=== PATIENT | female | born 1970 | race African-American/Black ===

== ENCOUNTER 2018-05-14 14:58 | Inpatient (IN) | payer SELFPAY ==
[~2018-05-14] VITALS: Ht 172.7 cm; Wt 105.0 kg
[2018-05-14 15:33] LABS: Basophils # (auto) 0.1 uL; Basophils % (auto) 0.7 % (0.0-2.0); Eosinophils # (auto) 0 uL; Eosinophils % (auto) 0.1 % (0.0-7.0); Hematocrit 40.1 % (36.0-46.0); Lymphocytes # (auto) 1.3 uL; Lymphocytes % (auto) 13.4 % (10.0-50.0); Mean Corpuscular Hemoglobin 29.4 pg (28.0-32.0); Mean Corpuscular Hgb Conc. 32.3 g/dL (32.0-36.0); Mean Corpuscular Volume 90.8 fL (80.0-100.0); Monocytes # (auto) 0.9 uL; Monocytes % (auto) 9.8 % (0.0-12.0); Neutrophils # (auto) 7.2 uL; Nucleated Red Blood Cells % 0.1 %; Platelet Count (auto) 212 10^3/uL (140-450); Red Blood Cells 4.42 10^6/uL (4.0-5.20); Red Cell Distribution Width 14.5 % (11.8-14.3); White Blood Cell 9.5 10^3/uL (4.4-10.8)
[2018-05-14 15:52] LABS: Albumin 3.4 g/dL (3.4-5.0); Calcium 8.9 mg/dL (8.5-10.1)
[2018-05-14 15:55] LABS: Bilirubin, Total 1.5 mg/dL (0.2-1.0); Total Protein 8.9 g/dL (6.4-8.2)
[2018-05-14] MEDS ORDERED: PANTOPRAZOLE 40 MG/10 ML VIAL IV STA (15:57)
[2018-05-14] MEDS ORDERED: SODIUM CHLORIDE 0.9% 500 ML IVB ONE (15:57)
[2018-05-14] MEDS ORDERED: HYDROmorphone HCL 2 MG/ML VL IV ONE (16:00)
[2018-05-14] MEDS ORDERED: ONDANSETRON HCL 4 MG/2 ML VIAL IV ONE (16:00)
[2018-05-14 16:58] LABS: Magnesium 2.2 mg/dL (1.6-2.6)
[2018-05-14 21:16] LABS: Urine Bacteria NONE SEEN /hpf (None Seen); Urine Blood Negative /uL (Negative); Urine Mucus FEW (None Seen); Urine Specific Gravity 1.025 (1.001-1.035); Urine WBC 241 /hpf (0 - 5); Urine WBC Clumps PRESENT /hpf (None Seen)
[2018-05-15] MEDS ORDERED: diphenhdrAMINE HCL 50 MG/1 ML VL IV ONE
[2018-05-15] MEDS ORDERED: ONDANSETRON HCL 4 MG/2 ML VIAL IV PRN (00:45)
[2018-05-15] MEDS ORDERED: HYDROcodone-ACET 5/325MG TAB PO PRN (00:45)
[2018-05-15] MEDS ORDERED: TEMAZEPAM 15 MG CAP PO PRN (00:45)
[2018-05-15] MEDS ORDERED: MORPHINE SULFATE 4 MG/ML SYR/VIAL IV PRN (00:45)
[2018-05-15] MEDS ORDERED: POTASSIUM CHL 20 Meq TABLET PO ONE (01:00)
[2018-05-15] MEDS ORDERED: SODIUM CHLORIDE 0.9% 500 ML IV ONE (01:00)
[2018-05-15] MEDS ORDERED: TAMSULOSIN HYDROCHLORIDE 0.4 MG CAP PO ONE (01:00)
[2018-05-15] MEDS ORDERED: cefTRIAXone 1GM/50ML D5W 50 ML IV ONE (01:00)
[2018-05-15] MEDS ORDERED: diphenhdrAMINE HCL 25 MG CAP PO ONE (01:00)
[2018-05-15] MEDS: SODIUM CHLORIDE 0.9% 1,000 ML IV SCH ×2 (01:34→13:54)
[2018-05-15 02:30] VITALS: BP 150/81
[2018-05-15 05:00] VITALS: BP 116/76
[2018-05-15] MEDS: ACETAMINOPHEN 325 MG TAB PO PRN ×2 (05:15→18:30)
[2018-05-15] MEDS ORDERED: HYDR25TA4 PO (05:49)
[2018-05-15] MEDS ORDERED: LISI-646 PO (05:49)
[2018-05-15 07:57] LABS: Calcium 7.8 mg/dL (8.5-10.1); Potassium 3.9 mmol/L (3.5-5.1)
[2018-05-15 08:00] VITALS: BP 116/70
[2018-05-15 08:01] LABS: BUN/Creatinine Ratio 12.6
[2018-05-15] MEDS: FAMOTIDINE 20 MG TAB PO SCH ×2 (09:51→21:18)
[2018-05-15] MEDS: LISINOPRIL 5 MG TAB PO SCH (09:52)
[2018-05-15] MEDS: HCTZ 25 MG TAB PO SCH (09:52)
[2018-05-15 13:09] VITALS: BP 126/67
[2018-05-15] MEDS ORDERED: KETOROLAC TROMETH 30 MG/ML 1ML VIAL IV PRN (13:30)
[2018-05-15] MEDS ORDERED: MANNITOL FTV 25% 12.5 GM/50 ML 50 ML IV ONE (13:30)
[2018-05-15 16:49] VITALS: BP 129/79
[2018-05-15] MEDS: metroNIDAZOLE 500 MG TAB PO SCH ×2 (18:26→23:39)
[2018-05-15] MEDS: TAMSULOSIN HYDROCHLORIDE 0.4 MG CAP PO SCH (18:26)
[2018-05-15] MEDS: cefTRIAXone 1GM/50ML D5W 50 ML IV SCH (21:17)
[2018-05-15 22:00] VITALS: BP 116/81
[2018-05-16] MEDS: SODIUM CHLORIDE 0.9% 1,000 ML IV SCH ×2 (02:00→14:30)
[2018-05-16 05:00] VITALS: BP 127/78
[2018-05-16] MEDS: metroNIDAZOLE 500 MG TAB PO SCH ×4 (05:33→23:48)
[2018-05-16] MEDS: ACETAMINOPHEN 325 MG TAB PO PRN (05:41)
[2018-05-16 05:51] LABS: Basophils # (auto) 0 uL; Basophils % (auto) 0.9 % (0.0-2.0); Eosinophils # (auto) 0.2 uL; Eosinophils % (auto) 3.6 % (0.0-7.0); Hemoglobin 10.4 g/dL (12.2-16.2); Lymphocytes # (auto) 1.3 uL; Mean Corpuscular Hemoglobin 29.9 pg (28.0-32.0); Mean Corpuscular Hgb Conc. 33.3 g/dL (32.0-36.0); Mean Corpuscular Volume 89.7 fL (80.0-100.0); Monocytes # (auto) 0.9 uL; Monocytes % (auto) 17.3 % (0.0-12.0); Neutrophils # (auto) 2.9 uL; Neutrophils % (auto) 54.2 % (37.0-80.0); Nucleated Red Blood Cells % 0.1 %; Platelet Count (auto) 201 10^3/uL (140-450); Red Blood Cells 3.46 10^6/uL (4.0-5.20); Red Cell Distribution Width 14.2 % (11.8-14.3); White Blood Cell 5.4 10^3/uL (4.4-10.8)
[2018-05-16 06:15] LABS: Calcium 7.9 mg/dL (8.5-10.1); Potassium 3.2 mmol/L (3.5-5.1)
[2018-05-16 06:17] LABS: BUN/Creatinine Ratio 7.9
[2018-05-16 09:00] VITALS: BP 140/83
[2018-05-16] MEDS: FAMOTIDINE 20 MG TAB PO SCH ×2 (10:19→21:22)
[2018-05-16] MEDS: LISINOPRIL 5 MG TAB PO SCH (10:20)
[2018-05-16] MEDS: HCTZ 25 MG TAB PO SCH (10:20)
[2018-05-16] MEDS ORDERED: POTASSIUM CHL 20 Meq TABLET PO ONE ×2 (12:15→13:00)
[2018-05-16 13:00] VITALS: BP 134/81
[2018-05-16 17:07] VITALS: BP 133/90
[2018-05-16] MEDS: TAMSULOSIN HYDROCHLORIDE 0.4 MG CAP PO SCH (17:40)
[2018-05-16] MEDS: cefTRIAXone 1GM/50ML D5W 50 ML IV SCH (20:34)
[2018-05-16 21:27] VITALS: BP 137/79
[2018-05-17] MEDS: SODIUM CHLORIDE 0.9% 1,000 ML IV SCH ×2 (01:40→12:52)
[2018-05-17 04:35] VITALS: BP 142/88
[2018-05-17 05:42] LABS: Hemoglobin 9.9 g/dL (12.2-16.2)
[2018-05-17] MEDS: metroNIDAZOLE 500 MG TAB PO SCH ×2 (06:08→12:43)
[2018-05-17] MEDS: LISINOPRIL 5 MG TAB PO SCH (10:17)
[2018-05-17] MEDS: HCTZ 25 MG TAB PO SCH (10:20)
[2018-05-17] MEDS: FAMOTIDINE 20 MG TAB PO SCH (10:20)
[2018-05-17 13:00] VITALS: BP 161/84
[2018-05-17] MEDS ORDERED: LEVO500T21 PO (13:08)
[2018-05-17] MEDS ORDERED: TAM04C PO (13:08)
[2018-05-17] MEDS ORDERED: POTASSIUM CHL 20 Meq TABLET PO ONE (13:15)
[2018-05-17 17:00] VITALS: BP 154/81
== END 2018-05-17 17:35 | disposition home or self-care (01) | DRG 871 ==
LOC: ER 15:01 → OVERFLOW 05-15 00:46 → WEST WING 05-15 02:15
PROVIDERS: ADMIT Nurse Practitioner; ATTEND Internal Medicine
DX: A41.9 Sepsis, unspecified organism (principal); N17.0 Acute kidney failure with tubular necrosis; N13.6 Pyonephrosis; E87.6 Hypokalemia; E87.5 Hyperkalemia; E66.9 Obesity, unspecified; I10 Essential (primary) hypertension; B96.4 Proteus (mirabilis) (morganii) as the cause of diseases classified elsewhere; E86.0 Dehydration; Z90.49 Acquired absence of other specified parts of digestive tract; Z68.35 Body mass index [BMI] 35.0-35.9, adult
CPT/HCPCS: 36415; 71046; 74176; 80048; 80053; 81001; 82150; 83690; 83735; 84132; 85014; 85018; 85025; 87040; 87045; 87086; 87088; 87186; 87493; 87899; 94761; 96361; 96365; 96367; 96375; C9113; G0378; J0696; J1885; J2405

== ENCOUNTER 2019-03-16 19:01 | Emergency (ER) | payer SELFPAY ==
[~2019-03-16] VITALS: Ht 172.7 cm; Wt 104.3 kg
[~2019-03-16 19:01] MED LIST: HYDR25TA4 PO; LEVO500T21 PO; LISI-646 PO; TAM04C PO
[2019-03-16] MEDS ORDERED: SODIUM CHLORIDE 0.9% 1,000 ML IV ONE (21:00)
[2019-03-16] MEDS ORDERED: diphenhdrAMINE HCL 50 MG/1 ML VL IV ONE (21:00)
[2019-03-16] MEDS ORDERED: methylPREDNISolone SOD SUCC 125 MG/2 ML VL IV ONE (21:00)
[2019-03-16] MEDS ORDERED: cefTRIAXone 1GM/50ML D5W 50 ML IV ONE (22:45)
[2019-03-16 23:29] VITALS: BP 168/84
== END 2019-03-17 00:23 | disposition home or self-care (01) ==
LOC: ER 19:05
DX: T78.3XXA Angioneurotic edema, initial encounter (principal); J03.90 Acute tonsillitis, unspecified; I10 Essential (primary) hypertension; Z90.49 Acquired absence of other specified parts of digestive tract; Z98.51 Tubal ligation status; X58.XXXA Exposure to other specified factors, initial encounter
CPT/HCPCS: 72125; 96365; 96375; 99284; J0696; J1200; J2930

== ENCOUNTER 2021-12-12 18:26 | Inpatient (IN) | payer MEDICAID ==
[~2021-12-12] VITALS: Ht 172.7 cm; Wt 107.3 kg
[~2021-12-12 18:26] MED LIST changes: -LEVO500T21 PO; +LEVO500T31 PO; -LISI-646 PO; +LISI20TA28 PO
[2021-12-12 19:09] LABS: Basophils # (auto) 0.2 10 ^3/uL (0-0.2); Eosinophils # (auto) 0 10 ^3/uL (0-0.8); Eosinophils % (auto) 0.4 % (0.0-7.0); Hematocrit 38.8 % (36.0-46.0); Lymphocytes # (auto) 1.8 10 ^3/uL (0.4-5.4); Lymphocytes % (auto) 19.7 % (10.0-50.0); Mean Corpuscular Hemoglobin 30.3 pg (28.0-32.0); Mean Corpuscular Hgb Conc. 33.5 g/dL (32.0-36.0); Mean Corpuscular Volume 90.6 fL (80.0-100.0); Monocytes # (auto) 0.7 10 ^3/uL (0-1.3); Monocytes % (auto) 8.2 % (0.0-12.0); Neutrophils # (auto) 6.2 10 ^3/uL (1.6-8.6); Neutrophils % (auto) 69.7 % (37.0-80.0); Nucleated Red Blood Cells % 0.1 %; Red Blood Cells 4.28 10^6/uL (4.0-5.20); Red Cell Distribution Width 13.7 % (11.8-14.3); White Blood Cell 8.9 10^3/uL (4.4-10.8)
[2021-12-12 19:27] LABS: Albumin 3.9 g/dL (3.4-5.0); BUN/Creatinine Ratio 16.5; Calcium 9.3 mg/dL (8.5-10.1); Potassium 3.5 mmol/L (3.5-5.1)
[2021-12-12 19:30] LABS: Bilirubin, Total 1.3 mg/dL (0.2-1.0)
[2021-12-12] MEDS ORDERED: cloNIDine HCL 0.1 MG TAB PO ONE (20:15)
[2021-12-12] MEDS ORDERED: ENOXAPARIN SOD 100 MG/1 ML SYRINGE SC ONE (20:15)
[2021-12-12] MEDS ORDERED: ASPirin 81 mg TAB PO ONE ×2 (20:15)
[2021-12-12] MEDS ORDERED: SODIUM CHLORIDE 0.9% 500 ML IV ONE (22:00)
[2021-12-12] MEDS ORDERED: HYDROcodone-ACET 5/325MG TAB PO PRN (22:00)
[2021-12-12] MEDS ORDERED: TEMAZEPAM 15 MG CAP PO PRN (22:00)
[2021-12-12] MEDS ORDERED: NITROGLYCERIN 0.4 MG SL TAB SL PRN (22:00)
[2021-12-12] MEDS ORDERED: ATORVASTATIN 20 MG TAB PO SCH (22:00)
[2021-12-12] MEDS ORDERED: TAMSULOSIN HYDROCHLORIDE 0.4 MG CAP PO ONE (22:00)
[2021-12-12] MEDS ORDERED: MORPHINE SULFATE INJ 2 MG/ml SYRG IV PRN ×2 (22:00)
[2021-12-12] MEDS ORDERED: cloNIDine HCL 0.1 MG TAB PO PRN (22:00)
[2021-12-12] MEDS ORDERED: ONDANSETRON HCL 4 MG/2 ML VIAL IV PRN (22:00)
[2021-12-12 23:08] LABS: Urine Bacteria MANY /hpf (None Seen); Urine Blood 2+ /uL (Negative); Urine Mucus MANY (None Seen); Urine Specific Gravity 1.025 (1.001-1.035); Urine WBC 647 /hpf (0 - 5); Urine WBC Clumps PRESENT /hpf (None Seen)
[2021-12-13] VITALS (7 sets, daily range): BP systolic 98–141; BP diastolic 56–78
[2021-12-13] MEDS: ACETAMINOPHEN 325 MG TAB PO PRN (06:22)
[2021-12-13 06:46] LABS: Basophils # (auto) 0.1 10 ^3/uL (0-0.2); Basophils % (auto) 1.4 % (0.0-2.0); Eosinophils # (auto) 0 10 ^3/uL (0-0.8); Eosinophils % (auto) 0.8 % (0.0-7.0); Hematocrit 33.1 % (36.0-46.0); Lymphocytes # (auto) 1.5 10 ^3/uL (0.4-5.4); Lymphocytes % (auto) 26.1 % (10.0-50.0); Mean Corpuscular Hemoglobin 30.3 pg (28.0-32.0); Mean Corpuscular Hgb Conc. 33.4 g/dL (32.0-36.0); Mean Corpuscular Volume 90.8 fL (80.0-100.0); Monocytes # (auto) 0.9 10 ^3/uL (0-1.3); Monocytes % (auto) 15.6 % (0.0-12.0); Neutrophils # (auto) 3.3 10 ^3/uL (1.6-8.6); Neutrophils % (auto) 56.1 % (37.0-80.0); Nucleated Red Blood Cells % 0.2 %; Red Blood Cells 3.64 10^6/uL (4.0-5.20); Red Cell Distribution Width 13.4 % (11.8-14.3); White Blood Cell 5.9 10^3/uL (4.4-10.8)
[2021-12-13 07:04] LABS: Calcium 8.4 mg/dL (8.5-10.1); Potassium 3.3 mmol/L (3.5-5.1)
[2021-12-13 07:09] LABS: Albumin 2.9 g/dL (3.4-5.0); BUN/Creatinine Ratio 20.2; Bilirubin, Total 0.8 mg/dL (0.2-1.0); Total Protein 7.2 g/dL (6.4-8.2)
[2021-12-13] MEDS: PANTOPRAZOLE 40 MG TAB PO SCH (09:43)
[2021-12-13] MEDS: ENOXAPARIN SOD 40 MG/0.4 ML SYRINGE SC SCH (09:44)
[2021-12-13] MEDS ORDERED: ASPirin 81 mg TAB PO SCH (10:00)
[2021-12-13] MEDS ORDERED: HCTZ 25 MG TAB PO SCH (10:00)
[2021-12-13] MEDS ORDERED: LISINOPRIL 20 MG TAB PO SCH (10:00)
[2021-12-13] MEDS ORDERED: POTASSIUM CHL 20 Meq TABLET PO ONE (15:15)
[2021-12-13] MEDS ORDERED: cefTRIAXone 1GM/50ML D5W 50 ML IV ONE (15:15)
[2021-12-13] MEDS: SODIUM CHLORIDE 0.9% 1,000 ML IV SCH (18:03)
[2021-12-14] MEDS: SODIUM CHLORIDE 0.9% 1,000 ML IV SCH ×2 (04:35→21:30)
[2021-12-14 04:47] VITALS: BP 123/87
[2021-12-14 06:03] LABS: Potassium 3.3 mmol/L (3.5-5.1)
[2021-12-14 06:11] LABS: Magnesium 2.2 mg/dL (1.6-2.6)
[2021-12-14] MEDS: cefTRIAXone 1GM/50ML D5W 50 ML IV SCH (08:25)
[2021-12-14 09:00] VITALS: BP 152/82
[2021-12-14] MEDS: PANTOPRAZOLE 40 MG TAB PO SCH (09:44)
[2021-12-14] MEDS: ENOXAPARIN SOD 40 MG/0.4 ML SYRINGE SC SCH (09:44)
[2021-12-14] MEDS ORDERED: POTASSIUM EFFERVESENT TAB 25 MEQ PO ONE (09:45)
[2021-12-14] MEDS ORDERED: CIPR500T4 PO (12:41)
[2021-12-14 13:05] VITALS: BP 148/87
[2021-12-14] MEDS: ACETAMINOPHEN 325 MG TAB PO PRN (16:59)
[2021-12-14 17:00] VITALS: BP 152/73
[2021-12-14 22:00] VITALS: BP 143/69
[2021-12-15 05:00] VITALS: BP 137/75
[2021-12-15] MEDS: SODIUM CHLORIDE 0.9% 1,000 ML IV SCH (05:25)
[2021-12-15] MEDS: PANTOPRAZOLE 40 MG TAB PO SCH (07:54)
[2021-12-15] MEDS: cefTRIAXone 1GM/50ML D5W 50 ML IV SCH (07:54)
[2021-12-15] MEDS: ENOXAPARIN SOD 40 MG/0.4 ML SYRINGE SC SCH (07:55)
[2021-12-15] MEDS: ACETAMINOPHEN 325 MG TAB PO PRN (08:03)
[2021-12-15 09:00] VITALS: BP_SYST 136; BP_SYST 153; BP_DIAS 67; BP_DIAS 90
== END 2021-12-15 13:15 | disposition home or self-care (01) | DRG 463 ==
LOC: ER 18:26 → TELE 21:57 → TELE-CENTR 23:29
PROVIDERS: ADMIT Nurse Practitioner; ATTEND Internal Medicine
DX: N13.6 Pyonephrosis (principal); I21.A1 Myocardial infarction type 2; D64.9 Anemia, unspecified; E66.9 Obesity, unspecified; E87.6 Hypokalemia; K42.9 Umbilical hernia without obstruction or gangrene; I10 Essential (primary) hypertension; I25.2 Old myocardial infarction; Z87.442 Personal history of urinary calculi; Z90.49 Acquired absence of other specified parts of digestive tract; Z68.36 Body mass index [BMI] 36.0-36.9, adult
CPT/HCPCS: 36415; 71045; 74176; 80053; 80061; 81001; 83036; 83735; 83880; 84132; 84443; 84484; 85025; 87086; 93005; 93306; 96360; 96372; 99291; G0378; J0696; J2405

== ENCOUNTER 2022-01-28 23:22 | Emergency (ER) | payer MEDICAID ==
[~2022-01-28] VITALS: Ht 175.3 cm; Wt 95.5 kg
[~2022-01-28 23:22] MED LIST changes: +CIPR500T4 PO; -HYDR25TA4 PO; -LEVO500T31 PO; -LISI20TA28 PO; -TAM04C PO
[2022-01-29 00:04] LABS: Basophils # (auto) 0.1 10 ^3/uL (0-0.2); Basophils % (auto) 1.3 % (0.0-2.0); Eosinophils # (auto) 0.7 10 ^3/uL (0-0.8); Hematocrit 33.4 % (36.0-46.0); Hemoglobin 11.1 g/dL (12.2-16.2); Lymphocytes # (auto) 2.9 10 ^3/uL (0.4-5.4); Lymphocytes % (auto) 35.2 % (10.0-50.0); Mean Corpuscular Hemoglobin 30.2 pg (28.0-32.0); Mean Corpuscular Hgb Conc. 33.2 g/dL (32.0-36.0); Mean Corpuscular Volume 90.9 fL (80.0-100.0); Monocytes # (auto) 0.6 10 ^3/uL (0-1.3); Monocytes % (auto) 6.9 % (0.0-12.0); Neutrophils % (auto) 48.6 % (37.0-80.0); Red Blood Cells 3.67 10^6/uL (4.0-5.20); Red Cell Distribution Width 14.9 % (11.8-14.3); White Blood Cell 8.3 10^3/uL (4.4-10.8)
[2022-01-29 00:20] LABS: Albumin 3.9 g/dL (3.4-5.0); Calcium 8.8 mg/dL (8.5-10.1); Magnesium 2.3 mg/dL (1.6-2.6)
[2022-01-29 00:23] LABS: BUN/Creatinine Ratio 14.8
[2022-01-29 00:25] LABS: Bilirubin, Total 0.4 mg/dL (0.2-1.0)
[2022-01-29 00:44] LABS: Potassium 2.9 mmol/L (3.5-5.1)
[2022-01-29] MEDS ORDERED: POTASSIUM CHL 20 Meq TABLET PO ONE (01:15)
[2022-01-29 05:40] VITALS: BP 151/76
== END 2022-01-29 05:40 | disposition home or self-care (01) ==
LOC: ER 23:22
DX: R07.89 Other chest pain (principal); I10 Essential (primary) hypertension; Z90.49 Acquired absence of other specified parts of digestive tract; Z79.2 Long term (current) use of antibiotics
CPT/HCPCS: 36415; 71045; 80053; 83735; 83880; 84443; 84484; 85025; 93005

== ENCOUNTER → 2022-06-15 | Day surgery (SDC) | payer MEDICAID ==
[2022-06-12 10:42] LABS: Basophils # (auto) 0.1 10 ^3/uL (0-0.2); Basophils % (auto) 1.2 % (0.0-2.0); Eosinophils # (auto) 0.6 10 ^3/uL (0-0.8); Eosinophils % (auto) 10.8 % (0.0-7.0); Hematocrit 40.1 % (36.0-46.0); Hemoglobin 13.2 g/dL (12.2-16.2); Lymphocytes # (auto) 2.1 10 ^3/uL (0.4-5.4); Lymphocytes % (auto) 36.8 % (10.0-50.0); Mean Corpuscular Hemoglobin 30.4 pg (28.0-32.0); Mean Corpuscular Volume 92.2 fL (80.0-100.0); Monocytes # (auto) 0.4 10 ^3/uL (0-1.3); Monocytes % (auto) 7.1 % (0.0-12.0); Neutrophils # (auto) 2.5 10 ^3/uL (1.6-8.6); Neutrophils % (auto) 44.1 % (37.0-80.0); Nucleated Red Blood Cells % 0.3 %; Red Blood Cells 4.35 10^6/uL (4.0-5.20); Red Cell Distribution Width 14.3 % (11.8-14.3); White Blood Cell 5.6 10^3/uL (4.4-10.8)
[2022-06-12 11:03] LABS: Potassium 3.2 mmol/L (3.5-5.1)
[2022-06-12 11:07] LABS: Albumin 3.7 g/dL (3.4-5.0); BUN/Creatinine Ratio 12.7; Calcium 9.2 mg/dL (8.5-10.1)
[2022-06-12 11:10] LABS: Bilirubin, Total 0.4 mg/dL (0.2-1.0)
[2022-06-12 11:17] LABS: INR 0.99 (0.9-1.15); Partial Thromboplastin Time 31.4 sec (24.6-33.4)
[2022-06-12 14:36] LABS: Urine Blood Trace /uL (Negative)
[~2022-06-15] VITALS: Ht 172.7 cm; Wt 108.9 kg
[~2022-06-15] MED LIST changes: +AMLO-496 PO; -CIPR500T4 PO; +CIPROFLOXACIN 400MG/200ML 200 ML IV ONE; +GLYCOPYRROLATE 0.2 MG/ML 1ML VIAL ONE; +HYDR25TA5 PO; +HYDROmorphone HCL 2 MG/ML VL/or syr IV PRN; +IOHEXOL 300 MG/ML 100ML BOTTLE IJ ONE; +LIDOCAINE 2% (LOCAL ANESTH.) PF 5ml SDV ONE; +MIDAZOLAM HCL 2MG/2ML 2ml VIAL (1mg/ml) ONE; +NEOSTIGMINE 1 MG/ML INJ (10mg/10ML VIAL) ONE; +ONDANSETRON HCL 4 MG/2 ML VIAL IV PRN; +ONDANSETRON HCL 4 MG/2 ML VIAL ONE; +PROPOFOL 10 MG/ML 20 ML IV ONE; +ROCURONIUM 10MG/ML 10ML VIAL IV ONE; +fentaNYL CITRATE 100 MCG/2 ML VL ONE
[2022-06-15 10:11] VITALS: BP 128/74
== END | disposition home or self-care (01) ==
LOC: SUR 06:26
PROVIDERS: ATTEND Urology
DX: N20.1 Calculus of ureter (principal); I10 Essential (primary) hypertension; Z79.899 Other long term (current) drug therapy
CPT/HCPCS: 36415; 52356; 74018; 76000; 80053; 81001; 85025; 85610; 85730; 88300; C2617; J0744; J2001; J2250; J2405; J2704; J3010; Q9967; U0003

== ENCOUNTER 2022-10-26 08:47 | Inpatient (IN) | payer MEDICAID ==
[~2022-10-26] VITALS: Ht 172.7 cm; Wt 104.0 kg
[~2022-10-26 08:47] MED LIST changes: -CIPROFLOXACIN 400MG/200ML 200 ML IV ONE; -GLYCOPYRROLATE 0.2 MG/ML 1ML VIAL ONE; -HYDROmorphone HCL 2 MG/ML VL/or syr IV PRN; -IOHEXOL 300 MG/ML 100ML BOTTLE IJ ONE; -LIDOCAINE 2% (LOCAL ANESTH.) PF 5ml SDV ONE; -MIDAZOLAM HCL 2MG/2ML 2ml VIAL (1mg/ml) ONE; -NEOSTIGMINE 1 MG/ML INJ (10mg/10ML VIAL) ONE; -ONDANSETRON HCL 4 MG/2 ML VIAL IV PRN; -ONDANSETRON HCL 4 MG/2 ML VIAL ONE; -PROPOFOL 10 MG/ML 20 ML IV ONE; -ROCURONIUM 10MG/ML 10ML VIAL IV ONE; -fentaNYL CITRATE 100 MCG/2 ML VL ONE
[2022-10-26 09:39] LABS: Basophils # (auto) 0.1 10 ^3/uL (0-0.2); Basophils % (auto) 0.9 % (0.0-2.0); Eosinophils # (auto) 0.4 10 ^3/uL (0-0.8); Eosinophils % (auto) 5.8 % (0.0-7.0); Hematocrit 33.8 % (36.0-46.0); Hemoglobin 11.1 g/dL (12.2-16.2); Lymphocytes # (auto) 2.8 10 ^3/uL (0.4-5.4); Lymphocytes % (auto) 40.7 % (10.0-50.0); Mean Corpuscular Hemoglobin 30.2 pg (28.0-32.0); Mean Corpuscular Volume 91.5 fL (80.0-100.0); Monocytes # (auto) 0.5 10 ^3/uL (0-1.3); Neutrophils # (auto) 3.2 10 ^3/uL (1.6-8.6); Neutrophils % (auto) 45.6 % (37.0-80.0); Nucleated Red Blood Cells % 0.2 %; Red Blood Cells 3.69 10^6/uL (4.0-5.20); White Blood Cell 6.9 10^3/uL (4.4-10.8)
[2022-10-26 10:25] LABS: Calcium 9.6 mg/dL (8.5-10.1); Potassium 3.3 mmol/L (3.5-5.1)
[2022-10-26 10:31] LABS: Albumin 3.6 g/dL (3.4-5.0); BUN/Creatinine Ratio 15.5 (10.0-20.0); Bilirubin, Total 0.2 mg/dL (0.2-1.0); Total Protein 7.6 g/dL (6.4-8.2)
[2022-10-26 10:41] LABS: Partial Thromboplastin Time 30.6 sec (24.6-33.4)
[2022-10-26 14:30] LABS: Urine Bacteria NONE SEEN /hpf (None Seen); Urine Blood Negative /uL (Negative); Urine Mucus FEW (None Seen); Urine Specific Gravity 1.022 (1.001-1.035); Urine WBC 1 /hpf (0 - 5)
[2022-10-26] MEDS ORDERED: ONDANSETRON HCL 4 MG/2 ML VIAL IV PRN (14:45)
[2022-10-26] MEDS ORDERED: DOCUSATE SOD 100 MG CAP PO PRN (14:45)
[2022-10-26] MEDS ORDERED: POTASSIUM EFFERVESENT TAB 25 MEQ PO ONE (14:45)
[2022-10-26] MEDS ORDERED: MORPHINE SULFATE INJ 2 MG/ml SYRG IV PRN (14:45)
[2022-10-26] MEDS: SODIUM CHLORIDE 0.9% 1,000 ML IV SCH ×2 (18:04→23:05)
[2022-10-27 06:10] LABS: Basophils # (auto) 0.3 10 ^3/uL (0-0.2); Basophils % (auto) 4.5 % (0.0-2.0); Eosinophils # (auto) 0.5 10 ^3/uL (0-0.8); Eosinophils % (auto) 7.3 % (0.0-7.0); Hematocrit 32.7 % (36.0-46.0); Lymphocytes # (auto) 2.7 10 ^3/uL (0.4-5.4); Lymphocytes % (auto) 40.6 % (10.0-50.0); Mean Corpuscular Hemoglobin 30.6 pg (28.0-32.0); Mean Corpuscular Hgb Conc. 33.5 g/dL (32.0-36.0); Mean Corpuscular Volume 91.2 fL (80.0-100.0); Monocytes # (auto) 0.5 10 ^3/uL (0-1.3); Monocytes % (auto) 7.8 % (0.0-12.0); Neutrophils # (auto) 2.6 10 ^3/uL (1.6-8.6); Neutrophils % (auto) 39.8 % (37.0-80.0); Nucleated Red Blood Cells % 0.1 %; Red Blood Cells 3.58 10^6/uL (4.0-5.20); Red Cell Distribution Width 14.3 % (11.8-14.3); White Blood Cell 6.5 10^3/uL (4.4-10.8)
[2022-10-27 06:43] LABS: Potassium 3.4 mmol/L (3.5-5.1)
[2022-10-27] MEDS ORDERED: LIDOCAINE 1% HCL (LOCAL ANESTH.) INJ 20ML MDV ONE (06:48)
[2022-10-27] MEDS ORDERED: BUPIVACAINE 0.25% INJ 50ML VIAL ONE (06:49)
[2022-10-27 06:58] LABS: Albumin 3.1 g/dL (3.4-5.0); BUN/Creatinine Ratio 17.4 (10.0-20.0); Bilirubin, Total 0.3 mg/dL (0.2-1.0); Calcium 9.1 mg/dL (8.5-10.1)
[2022-10-27] MEDS ORDERED: HYDROmorphone HCL 2 MG/ML VL/or syr IV PRN (07:15)
[2022-10-27] MEDS ORDERED: MORPHINE SULFATE INJ 2 MG/ml SYRG IV PRN (07:15)
[2022-10-27] MEDS ORDERED: METOCLOPRAMIDE HCL 5MG/ml INJ 2ml VIAL IV PRN (07:15)
[2022-10-27] MEDS ORDERED: ceFAZolin 1GM/50ML 100 ML IV ONE (07:21)
[2022-10-27] MEDS ORDERED: PROPOFOL 10 MG/ML 20 ML IV ONE (07:34)
[2022-10-27] MEDS ORDERED: DexAMETHasone SOD PHOS 10MG/1ML VIAL INJ ONE (07:34)
[2022-10-27] MEDS ORDERED: ONDANSETRON HCL 4 MG/2 ML VIAL ONE (07:34)
[2022-10-27] MEDS ORDERED: MIDAZOLAM HCL 2MG/2ML 2ml VIAL (1mg/ml) ONE (07:34)
[2022-10-27] MEDS ORDERED: fentaNYL CITRATE 100 MCG/2 ML VL ONE (07:34)
[2022-10-27] MEDS ORDERED: SODIUM CHLORIDE LOCK 20 ML ONE (07:34)
[2022-10-27] MEDS ORDERED: AUG875T PO (09:11)
[2022-10-27] MEDS ORDERED: HYDR-4902 PO (09:12)
[2022-10-27] MEDS ORDERED: MELO-61 PO (09:12)
[2022-10-27] MEDS: HYDROmorphone HCL 2 MG/ML VL/or syr IV PRN ×3 (09:15→09:40)
[2022-10-27] MEDS ORDERED: HCTZ 25 MG TAB PO SCH (10:00)
[2022-10-27] MEDS ORDERED: amLODIPine BESYLATE 5 MG TAB PO SCH (10:00)
[2022-10-27 10:15] VITALS: BP 120/77
== END 2022-10-27 10:35 | disposition home or self-care (01) | DRG 314 ==
LOC: ER 08:47 → OVERFLOW 14:53
PROVIDERS: ADMIT Nurse Practitioner Family; ATTEND Internal Medicine
PROC: 0LMW0ZZ Reattachment of Left Foot Tendon, Open Approach (ICD-10-PCS; 2022-10-27)
PROC: BQ1MZZZ Fluoroscopy of Left Foot (ICD-10-PCS; 2022-10-27)
PROC: 0QBM0ZZ Excision of Left Tarsal, Open Approach (ICD-10-PCS; principal; 2022-10-27 07:41)
DX: M76.62 Achilles tendinitis, left leg (principal); D64.9 Anemia, unspecified; E87.5 Hyperkalemia; M72.2 Plantar fascial fibromatosis; I10 Essential (primary) hypertension; M89.9 Disorder of bone, unspecified; E87.6 Hypokalemia; Z90.49 Acquired absence of other specified parts of digestive tract
CPT/HCPCS: 36415; 73600; 73630; 76000; 80053; 81001; 84702; 85025; 85610; 85730; 86850; 86870; 86880; 86900; 86901; 86905; 86906; 86971; 93005; G0378; J0690; J1100; J2001; J2250; J2405; J2704; J3490

== ENCOUNTER 2023-05-26 00:36 | Inpatient (IN) | payer MEDICAID ==
[~2023-05-26] VITALS: Ht 175.3 cm; Wt 106.5 kg
[~2023-05-26 00:36] MED LIST changes: -AMLO-496 PO; +AMLO1TAB23 PO; +AUG875T PO; +HYDR-4902 PO; +MELO-61 PO
[2023-05-26] MEDS ORDERED: amLODIPine BESYLATE 5 MG TAB PO ONE (01:00)
[2023-05-26 01:04] LABS: Basophils # (auto) 0.1 10 ^3/uL (0-0.2); Basophils % (auto) 1.2 % (0.0-2.0); Eosinophils # (auto) 0.6 10 ^3/uL (0-0.8); Eosinophils % (auto) 8.6 % (0.0-7.0); Hematocrit 38.6 % (36.0-46.0); Hemoglobin 12.6 g/dL (12.2-16.2); Lymphocytes % (auto) 41.6 % (10.0-50.0); Mean Corpuscular Hemoglobin 30.2 pg (28.0-32.0); Mean Corpuscular Hgb Conc. 32.6 g/dL (32.0-36.0); Mean Corpuscular Volume 92.8 fL (80.0-100.0); Monocytes # (auto) 0.3 10 ^3/uL (0-1.3); Monocytes % (auto) 4.6 % (0.0-12.0); Neutrophils # (auto) 3.2 10 ^3/uL (1.6-8.6); Nucleated Red Blood Cells % 0.1 %; Red Blood Cells 4.15 10^6/uL (4.0-5.20); Red Cell Distribution Width 14.5 % (11.8-14.3); White Blood Cell 7.3 10^3/uL (4.4-10.8)
[2023-05-26 01:09] LABS: Chloride 107 mmol/L (98-107); Potassium 2.9 mmol/L (3.5-5.1); Sodium 142 mmol/L (136-145)
[2023-05-26 01:10] LABS: Anion Gap 8 (5-15); Calcium 9.4 mg/dL (8.7-10.4); Carbon Dioxide 27 mmol/L (20-30)
[2023-05-26 01:15] LABS: Alkaline Phosphatase 64 U/L (46-116); BUN/Creatinine Ratio 11.7 (10.0-20.0); Blood Urea Nitrogen 9 mg/dL (9-23); Glucose 118 mg/dL (74-106); INR 1.07 (0.9-1.15); Partial Thromboplastin Time 31.6 SEC (24.5-34.5); Prothrombin Time 11.2 sec (9.3-11.8)
[2023-05-26 01:17] LABS: Albumin 4.7 g/dL (3.2-4.8); Aspartate Aminotransferase 23 U/L (13-40)
[2023-05-26 01:18] LABS: Bilirubin, Total 0.4 mg/dL (0.2-1.0); Total Protein 7.8 g/dL (5.7-8.2)
[2023-05-26] MEDS ORDERED: cloNIDine HCL 0.1 MG TAB PO ONE (01:45)
[2023-05-26] MEDS ORDERED: HYDROmorphone HCL 2 MG/ML VL/or syr IV ONE (02:15)
[2023-05-26] MEDS ORDERED: POTASSIUM CHL 20 Meq TABLET PO ONE (02:15)
[2023-05-26] MEDS ORDERED: NITROGLYCERIN 0.2MG/HR TOPICAL PATCH TD ONE (02:15)
[2023-05-26] MEDS ORDERED: ACETAMINOPHEN 325 MG TAB PO ONE (02:15)
[2023-05-26] MEDS ORDERED: ASPirin 81 mg TAB PO ONE (02:15)
[2023-05-26] MEDS ORDERED: ONDANSETRON HCL 4 MG/2 ML VIAL IV ONE (02:15)
[2023-05-26 02:25] LABS: Alanine Aminotransferase 19 U/L (7-40)
[2023-05-26] MEDS ORDERED: POTASSIUM CHL 20MEQ/100ML 100 ML IV SCH (03:00)
[2023-05-26 03:18] VITALS: BP 133/83; RESP 18; TEMP 97.6; O2SAT 94
[2023-05-26 03:49] VITALS: PULSE 86
[2023-05-26] MEDS ORDERED: hydrALAZINE HCL 20 MG/ML VL IV PRN (05:30)
[2023-05-26] MEDS ORDERED: MORPHINE SULFATE INJ 2 MG/ml SYRG IV PRN ×2 (05:30)
[2023-05-26] MEDS ORDERED: DOCUSATE SOD 100 MG CAP PO PRN (05:30)
[2023-05-26] MEDS ORDERED: HYDROcodone-ACET 5/325MG TAB PO PRN (05:30)
[2023-05-26] MEDS ORDERED: ACETAMINOPHEN 325 MG TAB PO PRN (05:30)
[2023-05-26] MEDS ORDERED: NITROGLYCERIN 0.4 MG SL TAB SL PRN (05:30)
[2023-05-26] MEDS ORDERED: ONDANSETRON HCL 4 MG/2 ML VIAL IV PRN (05:30)
[2023-05-26 05:45] LABS: Alanine Aminotransferase 18 U/L (7-40); Albumin 4.2 g/dL (3.2-4.8); Alkaline Phosphatase 57 U/L (46-116); Anion Gap 5 (5-15); Aspartate Aminotransferase 21 U/L (13-40); BUN/Creatinine Ratio 15.9 (10.0-20.0); Blood Urea Nitrogen 11 mg/dL (9-23); Calcium 8.9 mg/dL (8.7-10.4); Carbon Dioxide 28 mmol/L (20-30); Chloride 108 mmol/L (98-107); Glucose 107 mg/dL (74-106); Potassium 3.5 mmol/L (3.5-5.1); Sodium 141 mmol/L (136-145)
[2023-05-26 05:46] LABS: Bilirubin, Total 0.3 mg/dL (0.2-1.0); Total Protein 7.2 g/dL (5.7-8.2)
[2023-05-26] MEDS ORDERED: SODIUM CHLOR 0.9% PF (SALINE LOCK) 10ML VIAL/SYR IV SCH (06:00)
[2023-05-26] MEDS ORDERED: amLODIPine BESYLATE 5 MG TAB PO SCH (10:00)
[2023-05-26] MEDS ORDERED: ASPirin 81 mg TAB PO SCH (10:00)
== END 2023-05-26 07:17 | disposition left against medical advice (07) | DRG 194 ==
LOC: ER 00:36 → TELE 05:22
PROVIDERS: ADMIT Nurse Practitioner Family; ATTEND Nurse Practitioner Family
DX: I11.0 Hypertensive heart disease with heart failure (principal); J44.1 Chronic obstructive pulmonary disease with (acute) exacerbation; I50.9 Heart failure, unspecified; Z53.21 Procedure and treatment not carried out due to patient leaving prior to being seen by health care provider; Z98.51 Tubal ligation status; Z90.49 Acquired absence of other specified parts of digestive tract; E87.6 Hypokalemia
CPT/HCPCS: 36415; 71045; 80053; 83735; 83880; 84484; 85025; 85610; 85730; 93005; G0378